=== PATIENT | male | born 1945 | race Caucasian/White ===

== ENCOUNTER 2022-03-07 10:13 | Emergency (ER) | payer MEDICARE, BC ==
[~2022-03-07] VITALS: Ht 172.7 cm; Wt 105.0 kg
[~2022-03-07 10:13] MED LIST: ATOR20TA66 PO; LOP25T PO; NITR0.4T51 SL; NITR1PAT63 TD; PIOG45TA PO; SITA1TBM4 PO; TICA90TA PO
[2022-03-07] MEDS ORDERED: acetaminophen 325mg tablet PO ONE (11:30)
[2022-03-07 11:59] LABS: HEMATOCRIT 28.6 % (42.0-52.0); HEMOGLOBIN 10.1 g/dl (14.0-17.9); LYMPHOCYTES # (AUTO) 1.1 X10'3 (1.1-4.8); NEUTROPHILS # (AUTO) 0.3 X10'3 (1.8-7.7)
[2022-03-07 12:01] LABS: BASOPHILS % (AUTO) 0.3 % (0-1); EOSINOPHILS % (AUTO) 0.7 % (0-6); LYMPHOCYTES % (AUTO) 37.6 % (21-51); MEAN CORPUSCULAR HEMOGLOBIN 32.5 PG (27.0-31.0); MEAN CORPUSCULAR HGB CONC 35.3 g/dL (33.0-36.5); MEAN CORPUSCULAR VOLUME 91.9 FL (78-98); MONOCYTES # (AUTO) 1.5 X10'3 (0-0.9); NEUTROPHILS % (AUTO) 9.1 % (42-75); RED BLOOD COUNT 3.11 X10'6 (4.70-6.10); RED CELL DISTRIBUTION WIDTH 15.7 % (11.5-14.5); WHITE BLOOD COUNT 2.9 X10'3 (4.5-11.0)
[2022-03-07 12:28] LABS: PLATELET COUNT 34 X10'3 (140-440)
[2022-03-07 12:43] LABS: PLATELET ESTIMATE DECREASED; TOTAL CELLS COUNTED 100
[2022-03-07 12:44] LABS: ANISOCYTOSIS 1+
[2022-03-07 12:45] LABS: MONOCYTES % (AUTO) 52.3 % (2-12)
[2022-03-07] MEDS ORDERED: LORA-269 PO (13:36)
[2022-03-07] MEDS ORDERED: [UNRECOGNIZED DRUG - CODE] PO (14:12)
[2022-03-07] MEDS ORDERED: CALC-723 PO (14:12)
[2022-03-07] MEDS ORDERED: ASPI-1265 PO (14:12)
[2022-03-07] MEDS ORDERED: METF-436 PO (14:12)
[2022-03-07] MEDS ORDERED: BICA50TA7 PO (14:12)
[2022-03-07] MEDS ORDERED: VITA-268 PO (14:12)
[2022-03-07] MEDS ORDERED: ZOLP5TAB8 PO (14:12)
[2022-03-07] MEDS ORDERED: INSU100C10 SQ (14:12)
[2022-03-07] MEDS ORDERED: INSU100V9 SQ (14:12)
[2022-03-07] MEDS ORDERED: TRAZ-251 PO (14:12)
[2022-03-07] MEDS ORDERED: LIRA0.6P2 SUBCUT (14:12)
[2022-03-07] MEDS ORDERED: IRON18TA PO (14:12)
[2022-03-07] MEDS ORDERED: LEUP3.753 IM (14:12)
[2022-03-07] MEDS ORDERED: [UNRECOGNIZED DRUG - CODE] PO (14:12)
[2022-03-07] MEDS ORDERED: CHOL20002 PO (14:12)
[2022-03-07] MEDS ORDERED: EMPA10TA PO (14:12)
[2022-03-07 14:18] LABS: MONOTEST NEGATIVE (Neg)
[2022-03-07 18:52] LABS: ALANINE AMINOTRANSFERASE 22 U/L (12-78); ALBUMIN 2.7 G/DL (3.4-5.0); ALBUMIN/GLOBULIN RATIO 0.7 (1.1-1.5); ALKALINE PHOSPHATASE 56 IU/L (46-116); ANION GAP 13 (8-16); ASPARTATE AMINO TRANSFERASE 23 U/L (10-37); BILIRUBIN,TOTAL 0.5 MG/DL (0.1-1.0); BLOOD UREA NITROGEN 21 MG/DL (7-18); BUN/CREATININE RATIO 20.8 (5.4-32.0); CALCIUM 8.6 MG/DL (8.5-10.1); CHLORIDE 105 MMOL/L (99-107); CREATININE 1.01 MG/DL (0.60-1.10); GLUCOSE 105 MG/DL (70-104); POTASSIUM 3.9 MMOL/L (3.5-5.1); SODIUM 139 MMOL/L (135-145); TOTAL CARBON DIOXIDE 21.4 MMOL/L (24-32); TOTAL PROTEIN 6.5 G/DL (6.4-8.2); eGFR 71 ML/MIN
[2022-03-07] MEDS ORDERED: CefTRIAXone 2gm/D5W 50ml BAG 50 ML IV ONE (19:10)
[2022-03-07] MEDS ORDERED: LEVO500T90 PO (19:12)
[2022-03-07] MEDS ORDERED: CefTRIAXone 2gm/NS 100ml IVPB 100 ML IV ONE (19:13)
[2022-03-07 20:07] VITALS: BP 126/73
== END 2022-03-07 20:13 | disposition home or self-care (01) ==
LOC: ER 10:14
DX: R05.9 Cough, unspecified (principal); Z20.822 Contact with and (suspected) exposure to COVID-19; R50.9 Fever, unspecified; R06.02 Shortness of breath; R53.81 Other malaise; D61.818 Other pancytopenia; I25.2 Old myocardial infarction; E11.9 Type 2 diabetes mellitus without complications; Z95.5 Presence of coronary angioplasty implant and graft; Z72.89 Other problems related to lifestyle; Z79.82 Long term (current) use of aspirin; Z79.2 Long term (current) use of antibiotics; Z79.899 Other long term (current) drug therapy; Z79.4 Long term (current) use of insulin
CPT/HCPCS: 36415; 71045; 80053; 82948; 83605; 84145; 84484; 85007; 85025; 86308; 87040; 87502; 87503; 87635; 96365; 99285; C9803; J0696; 96374; 99284